=== PATIENT | male | born 1965 | race African-American/Black ===

== ENCOUNTER 2021-12-17 15:57 | Inpatient (IN) | payer OTHER ==
[2021-12-17 19:18] VITALS: BMI 17.7
[2021-12-17] MEDS ORDERED: IBUPROFEN 400 MG TABLET (FP) PO PRN (21:53)
[2021-12-17] MEDS ORDERED: MAGNESIUM HYDROX 2400MG/30ML ORAL SUSPENSION 30 ML CUP PO PRN (21:53)
[2021-12-17] MEDS ORDERED: guaiFENesin 200 MG/10 ML 10 ML UNIT-DOSE CUPS PO PRN (21:53)
[2021-12-17] MEDS ORDERED: P-EPHED 60MG/TRIPROLIDI 2.5MG TABLET PO PRN (21:53)
[2021-12-17] MEDS ORDERED: MENTHOL/PHENOL 1 EACH UD MM PRN (21:53)
[2021-12-17] MEDS ORDERED: hydrOXYzine PAMOATE 25 MG CAPSULE (FP) PO PRN (21:53)
[2021-12-17] MEDS ORDERED: MAGNESIUM CITRATE 300 ML BOTTLE PO PRN (21:53)
[2021-12-17] MEDS ORDERED: ACETAMINOPHEN 325 MG TABLET (FP) PO PRN (21:53)
[2021-12-17] MEDS ORDERED: LOPERAMIDE HCL 2 MG CAPSULE PO PRN (21:53)
[2021-12-17] MEDS ORDERED: MAG HYDROX/AL HYDROX/SIMETH 30 ML UNIT-DOSE CUP PO PRN (21:53)
[2021-12-18] MEDS ORDERED: IBUPROFEN 400 MG TABLET (FP) PO ONE (01:54)
[2021-12-18] MEDS: INSULIN SLIDING SCALE (NOVOLOG) 1 VIAL SQ SCH ×5 (04:12→21:11)
[2021-12-18] MEDS: THIAMINE HCL 100 MG TABLET (FP) PO SCH ×2 (04:12→21:07)
[2021-12-18] MEDS: MELATONIN 5 MG TABLETS PO SCH ×2 (04:13→21:07)
[2021-12-18] MEDS ORDERED: TUBERCULIN PPD 5 TU/0.1ML VIAL ID ONE (06:21)
[2021-12-18] MEDS ORDERED: INSULIN SLIDING SCALE (NOVOLOG) 1 VIAL SQ ONE ×2 (06:34→13:53)
[2021-12-18] MEDS: PRENATAL VITAMINS W/ FOLIC ACID TABLET (FP) PO SCH (09:57)
[2021-12-18] MEDS: NICOTINE 10 MG CARTRIDGE (INHALER) IH PRN (10:08)
[2021-12-18] MEDS ORDERED: ALBUTEROL SO4 HFA INHALER IH PRN (10:27)
[2021-12-18] MEDS ORDERED: BASAGLAR U SQ SCH (10:30)
[2021-12-18] MEDS ORDERED: glipiZIDE-XL 10 MG TAB.ER.24 (FP) PO SCH (13:00)
[2021-12-18] MEDS: ENALAPRIL MALEATE 10 MG TABLET PO SCH (13:32)
[2021-12-18] MEDS: sitaGLIPtin PHOSPHATE 50 MG TABLET PO SCH (13:32)
[2021-12-18] MEDS: PANTOPRAZOLE 40 MG TABLET PO SCH (13:32)
[2021-12-18] MEDS: glipiZIDE-XL 5 MG TAB.ER.24 PO SCH (13:32)
[2021-12-18] MEDS: GABAPENTIN 300 MG CAPSULE PO SCH ×2 (13:33→21:07)
[2021-12-18] MEDS: RIVAROXABAN 20 MG TABLET PO SCH (17:11)
[2021-12-18] MEDS: ATORVASTATIN CA 40 MG TABLET (FP) PO SCH (21:07)
[2021-12-18] MEDS: INSULIN (LEVEMIR) 100 UNITS/ML UNITS SQ SCH (21:11)
[2021-12-19] MEDS: sitaGLIPtin PHOSPHATE 50 MG TABLET PO SCH (06:48)
[2021-12-19] MEDS: glipiZIDE-XL 5 MG TAB.ER.24 PO SCH (06:48)
[2021-12-19] MEDS: GABAPENTIN 300 MG CAPSULE PO SCH ×3 (06:48→21:10)
[2021-12-19] MEDS: INSULIN SLIDING SCALE (NOVOLOG) 1 VIAL SQ SCH ×4 (07:19→21:15)
[2021-12-19] MEDS: PANTOPRAZOLE 40 MG TABLET PO SCH (09:36)
[2021-12-19] MEDS: PRENATAL VITAMINS W/ FOLIC ACID TABLET (FP) PO SCH (09:36)
[2021-12-19] MEDS: ENALAPRIL MALEATE 10 MG TABLET PO SCH (09:37)
[2021-12-19] MEDS: RIVAROXABAN 20 MG TABLET PO SCH (18:22)
[2021-12-19] MEDS: THIAMINE HCL 100 MG TABLET (FP) PO SCH (21:10)
[2021-12-19] MEDS: ATORVASTATIN CA 40 MG TABLET (FP) PO SCH (21:10)
[2021-12-19] MEDS: INSULIN (LEVEMIR) 100 UNITS/ML UNITS SQ SCH (21:14)
[2021-12-19] MEDS: PRAZOSIN HCL 1 MG CAPSULE PO SCH (21:17)
[2021-12-19] MEDS ORDERED: SUVOREXANT 10 MG TABLET PO PRN (22:00)
[2021-12-20] MEDS ORDERED: INSULIN SLIDING SCALE (NOVOLOG) 1 VIAL SQ ONE ×2 (06:34→12:22)
[2021-12-20] MEDS: GABAPENTIN 300 MG CAPSULE PO SCH ×3 (06:36→21:05)
[2021-12-20] MEDS: sitaGLIPtin PHOSPHATE 50 MG TABLET PO SCH (06:39)
[2021-12-20] MEDS: INSULIN SLIDING SCALE (NOVOLOG) 1 VIAL SQ SCH ×4 (07:15→21:09)
[2021-12-20] MEDS: ENALAPRIL MALEATE 10 MG TABLET PO SCH (10:19)
[2021-12-20] MEDS: PANTOPRAZOLE 40 MG TABLET PO SCH (10:19)
[2021-12-20] MEDS: PRENATAL VITAMINS W/ FOLIC ACID TABLET (FP) PO SCH (10:20)
[2021-12-20] MEDS: glipiZIDE-XL 5 MG TAB.ER.24 PO SCH (11:16)
[2021-12-20] MEDS: RIVAROXABAN 20 MG TABLET PO SCH (17:05)
[2021-12-20] MEDS: THIAMINE HCL 100 MG TABLET (FP) PO SCH (21:04)
[2021-12-20] MEDS: ATORVASTATIN CA 40 MG TABLET (FP) PO SCH (21:05)
[2021-12-20] MEDS: PRAZOSIN HCL 1 MG CAPSULE PO SCH (21:06)
[2021-12-20] MEDS: INSULIN (LEVEMIR) 100 UNITS/ML UNITS SQ SCH (21:11)
[2021-12-21] MEDS: GABAPENTIN 300 MG CAPSULE PO SCH ×3 (06:55→21:06)
[2021-12-21] MEDS: sitaGLIPtin PHOSPHATE 50 MG TABLET PO SCH (06:55)
[2021-12-21] MEDS ORDERED: INSULIN SLIDING SCALE (NOVOLOG) 1 VIAL SQ ONE ×2 (06:59→12:04)
[2021-12-21] MEDS: INSULIN SLIDING SCALE (NOVOLOG) 1 VIAL SQ SCH ×4 (07:00→21:43)
[2021-12-21] MEDS: glipiZIDE-XL 5 MG TAB.ER.24 PO SCH (09:02)
[2021-12-21] MEDS: PANTOPRAZOLE 40 MG TABLET PO SCH (10:29)
[2021-12-21] MEDS: ENALAPRIL MALEATE 10 MG TABLET PO SCH (10:30)
[2021-12-21] MEDS: PRENATAL VITAMINS W/ FOLIC ACID TABLET (FP) PO SCH (10:30)
[2021-12-21 11:56] LABS: HIV INTERPRETATION NEGATIVE (NEGATIVE)
[2021-12-21] MEDS: COLLOIDAL OATMEAL 1 BAR EACH TP PRN (12:11)
[2021-12-21] MEDS: RIVAROXABAN 20 MG TABLET PO SCH (17:51)
[2021-12-21] MEDS: THIAMINE HCL 100 MG TABLET (FP) PO SCH (21:06)
[2021-12-21] MEDS: ATORVASTATIN CA 40 MG TABLET (FP) PO SCH (21:06)
[2021-12-21] MEDS: PRAZOSIN HCL 1 MG CAPSULE PO SCH (21:06)
[2021-12-21] MEDS: SUVOREXANT 10 MG TABLET PO PRN (21:07)
[2021-12-21] MEDS: INSULIN (LEVEMIR) 100 UNITS/ML UNITS SQ SCH (21:43)
[2021-12-21] MEDS: VITAMINS A AND D TOPICAL OINTMENT 60 GM TUBE TP SCH (23:31)
[2021-12-22] MEDS: VITAMINS A AND D TOPICAL OINTMENT 60 GM TUBE TP SCH ×4 (00:51→17:28)
[2021-12-22] MEDS: sitaGLIPtin PHOSPHATE 50 MG TABLET PO SCH (06:07)
[2021-12-22] MEDS: GABAPENTIN 300 MG CAPSULE PO SCH ×3 (06:07→21:09)
[2021-12-22] MEDS: glipiZIDE-XL 5 MG TAB.ER.24 PO SCH (06:07)
[2021-12-22] MEDS: INSULIN SLIDING SCALE (NOVOLOG) 1 VIAL SQ SCH ×4 (07:42→21:15)
[2021-12-22] MEDS: PANTOPRAZOLE 40 MG TABLET PO SCH (09:49)
[2021-12-22] MEDS: ENALAPRIL MALEATE 10 MG TABLET PO SCH (09:49)
[2021-12-22] MEDS: PRENATAL VITAMINS W/ FOLIC ACID TABLET (FP) PO SCH (09:49)
[2021-12-22] MEDS: NICOTINE 10 MG CARTRIDGE (INHALER) IH PRN (09:50)
[2021-12-22] MEDS ORDERED: INSULIN SLIDING SCALE (NOVOLOG) 1 VIAL SQ ONE ×3 (11:54→21:14)
[2021-12-22] MEDS: RIVAROXABAN 20 MG TABLET PO SCH (17:26)
[2021-12-22] MEDS: ATORVASTATIN CA 40 MG TABLET (FP) PO SCH (21:08)
[2021-12-22] MEDS: THIAMINE HCL 100 MG TABLET (FP) PO SCH (21:09)
[2021-12-22] MEDS: PRAZOSIN HCL 1 MG CAPSULE PO SCH (21:09)
[2021-12-22] MEDS: SUVOREXANT 10 MG TABLET PO PRN (21:10)
[2021-12-22] MEDS: INSULIN (LEVEMIR) 100 UNITS/ML UNITS SQ SCH (21:14)
[2021-12-23] MEDS: VITAMINS A AND D TOPICAL OINTMENT 60 GM TUBE TP SCH ×4 (01:10→17:40)
[2021-12-23] MEDS: GABAPENTIN 300 MG CAPSULE PO SCH ×3 (06:05→21:02)
[2021-12-23] MEDS: glipiZIDE-XL 5 MG TAB.ER.24 PO SCH (06:05)
[2021-12-23] MEDS: sitaGLIPtin PHOSPHATE 50 MG TABLET PO SCH (06:05)
[2021-12-23] MEDS: INSULIN SLIDING SCALE (NOVOLOG) 1 VIAL SQ SCH ×4 (07:52→21:03)
[2021-12-23] MEDS: PANTOPRAZOLE 40 MG TABLET PO SCH (10:23)
[2021-12-23] MEDS: ENALAPRIL MALEATE 10 MG TABLET PO SCH (10:23)
[2021-12-23] MEDS: PRENATAL VITAMINS W/ FOLIC ACID TABLET (FP) PO SCH (10:23)
[2021-12-23 14:06] LABS: SARS-CoV-2 NAA Not Detected (Not Detected)
[2021-12-23] MEDS ORDERED: INSULIN SLIDING SCALE (NOVOLOG) 1 VIAL SQ ONE ×2 (16:39→21:54)
[2021-12-23] MEDS: RIVAROXABAN 20 MG TABLET PO SCH (17:40)
[2021-12-23] MEDS: PRAZOSIN HCL 1 MG CAPSULE PO SCH (21:01)
[2021-12-23] MEDS: ATORVASTATIN CA 40 MG TABLET (FP) PO SCH (21:02)
[2021-12-23] MEDS: THIAMINE HCL 100 MG TABLET (FP) PO SCH (21:02)
[2021-12-23] MEDS: SUVOREXANT 10 MG TABLET PO PRN (21:03)
[2021-12-23] MEDS: INSULIN (LEVEMIR) 100 UNITS/ML UNITS SQ SCH (21:04)
[2021-12-24] MEDS: VITAMINS A AND D TOPICAL OINTMENT 60 GM TUBE TP SCH ×5 (01:21→23:28)
[2021-12-24] MEDS: sitaGLIPtin PHOSPHATE 50 MG TABLET PO SCH (07:04)
[2021-12-24] MEDS: GABAPENTIN 300 MG CAPSULE PO SCH ×3 (07:04→21:00)
[2021-12-24] MEDS: glipiZIDE-XL 5 MG TAB.ER.24 PO SCH (07:04)
[2021-12-24] MEDS: INSULIN SLIDING SCALE (NOVOLOG) 1 VIAL SQ SCH ×4 (07:49→21:01)
[2021-12-24] MEDS: ENALAPRIL MALEATE 10 MG TABLET PO SCH (10:06)
[2021-12-24] MEDS: PRENATAL VITAMINS W/ FOLIC ACID TABLET (FP) PO SCH (10:06)
[2021-12-24] MEDS: PANTOPRAZOLE 40 MG TABLET PO SCH (10:06)
[2021-12-24] MEDS: RIVAROXABAN 20 MG TABLET PO SCH (18:43)
[2021-12-24] MEDS: ATORVASTATIN CA 40 MG TABLET (FP) PO SCH (21:00)
[2021-12-24] MEDS: PRAZOSIN HCL 1 MG CAPSULE PO SCH (21:00)
[2021-12-24] MEDS: THIAMINE HCL 100 MG TABLET (FP) PO SCH (21:00)
[2021-12-24] MEDS: SUVOREXANT 10 MG TABLET PO PRN (21:01)
[2021-12-24] MEDS: INSULIN (LEVEMIR) 100 UNITS/ML UNITS SQ SCH (21:01)
[2021-12-25] MEDS: GABAPENTIN 300 MG CAPSULE PO SCH ×3 (05:56→21:32)
[2021-12-25] MEDS: VITAMINS A AND D TOPICAL OINTMENT 60 GM TUBE TP SCH ×3 (06:07→17:06)
[2021-12-25] MEDS: sitaGLIPtin PHOSPHATE 50 MG TABLET PO SCH (06:08)
[2021-12-25] MEDS: glipiZIDE-XL 5 MG TAB.ER.24 PO SCH (06:08)
[2021-12-25] MEDS: INSULIN SLIDING SCALE (NOVOLOG) 1 VIAL SQ SCH ×4 (06:18→21:36)
[2021-12-25] MEDS: PANTOPRAZOLE 40 MG TABLET PO SCH (10:51)
[2021-12-25] MEDS: ENALAPRIL MALEATE 10 MG TABLET PO SCH (10:51)
[2021-12-25] MEDS: PRENATAL VITAMINS W/ FOLIC ACID TABLET (FP) PO SCH (10:52)
[2021-12-25] MEDS: NICOTINE 10 MG CARTRIDGE (INHALER) IH PRN (12:00)
[2021-12-25] MEDS: RIVAROXABAN 20 MG TABLET PO SCH (17:06)
[2021-12-25] MEDS: THIAMINE HCL 100 MG TABLET (FP) PO SCH (21:32)
[2021-12-25] MEDS: ATORVASTATIN CA 40 MG TABLET (FP) PO SCH (21:32)
[2021-12-25] MEDS: PRAZOSIN HCL 1 MG CAPSULE PO SCH (21:32)
[2021-12-25] MEDS: INSULIN (LEVEMIR) 100 UNITS/ML UNITS SQ SCH (21:36)
[2021-12-26] MEDS: GABAPENTIN 300 MG CAPSULE PO SCH ×4 (06:19→21:07)
[2021-12-26] MEDS: VITAMINS A AND D TOPICAL OINTMENT 60 GM TUBE TP SCH ×4 (06:20→17:27)
[2021-12-26] MEDS: COLLOIDAL OATMEAL 1 BAR EACH TP PRN (06:21)
[2021-12-26] MEDS: INSULIN SLIDING SCALE (NOVOLOG) 1 VIAL SQ SCH ×4 (07:29→21:08)
[2021-12-26] MEDS: sitaGLIPtin PHOSPHATE 50 MG TABLET PO SCH (07:29)
[2021-12-26] MEDS: glipiZIDE-XL 5 MG TAB.ER.24 PO SCH (08:30)
[2021-12-26] MEDS: PANTOPRAZOLE 40 MG TABLET PO SCH (09:58)
[2021-12-26] MEDS: PRENATAL VITAMINS W/ FOLIC ACID TABLET (FP) PO SCH (09:58)
[2021-12-26] MEDS: ENALAPRIL MALEATE 10 MG TABLET PO SCH (09:58)
[2021-12-26] MEDS: RIVAROXABAN 20 MG TABLET PO SCH (17:02)
[2021-12-26] MEDS: THIAMINE HCL 100 MG TABLET (FP) PO SCH (21:07)
[2021-12-26] MEDS: PRAZOSIN HCL 1 MG CAPSULE PO SCH (21:07)
[2021-12-26] MEDS: ATORVASTATIN CA 40 MG TABLET (FP) PO SCH (21:07)
[2021-12-26] MEDS: SUVOREXANT 10 MG TABLET PO PRN (21:07)
[2021-12-26] MEDS: INSULIN (LEVEMIR) 100 UNITS/ML UNITS SQ SCH (21:08)
[2021-12-27] MEDS: VITAMINS A AND D TOPICAL OINTMENT 60 GM TUBE TP SCH ×4 (01:01→17:22)
[2021-12-27] MEDS: INSULIN SLIDING SCALE (NOVOLOG) 1 VIAL SQ SCH ×4 (07:51→21:23)
[2021-12-27] MEDS: sitaGLIPtin PHOSPHATE 50 MG TABLET PO SCH (07:52)
[2021-12-27] MEDS: glipiZIDE-XL 5 MG TAB.ER.24 PO SCH (07:52)
[2021-12-27] MEDS: GABAPENTIN 300 MG CAPSULE PO SCH ×3 (07:53→21:22)
[2021-12-27] MEDS: PANTOPRAZOLE 40 MG TABLET PO SCH (10:02)
[2021-12-27] MEDS: ENALAPRIL MALEATE 10 MG TABLET PO SCH (10:02)
[2021-12-27] MEDS: PRENATAL VITAMINS W/ FOLIC ACID TABLET (FP) PO SCH (10:03)
[2021-12-27] MEDS: NICOTINE 10 MG CARTRIDGE (INHALER) IH PRN (11:54)
[2021-12-27] MEDS: RIVAROXABAN 20 MG TABLET PO SCH (17:19)
[2021-12-27] MEDS ORDERED: INSULIN SLIDING SCALE (NOVOLOG) 1 VIAL SQ ONE (21:21)
[2021-12-27] MEDS: ATORVASTATIN CA 40 MG TABLET (FP) PO SCH (21:22)
[2021-12-27] MEDS: INSULIN (LEVEMIR) 100 UNITS/ML UNITS SQ SCH (21:23)
[2021-12-27] MEDS: THIAMINE HCL 100 MG TABLET (FP) PO SCH (21:23)
[2021-12-27] MEDS: PRAZOSIN HCL 1 MG CAPSULE PO SCH (22:04)
[2021-12-28] MEDS: VITAMINS A AND D TOPICAL OINTMENT 60 GM TUBE TP SCH ×4 (01:32→20:18)
[2021-12-28] MEDS: glipiZIDE-XL 5 MG TAB.ER.24 PO SCH (06:11)
[2021-12-28] MEDS: sitaGLIPtin PHOSPHATE 50 MG TABLET PO SCH (06:11)
[2021-12-28] MEDS: GABAPENTIN 300 MG CAPSULE PO SCH ×3 (06:13→21:00)
[2021-12-28] MEDS: INSULIN SLIDING SCALE (NOVOLOG) 1 VIAL SQ SCH ×4 (07:54→21:01)
[2021-12-28] MEDS: PANTOPRAZOLE 40 MG TABLET PO SCH (10:02)
[2021-12-28] MEDS: PRENATAL VITAMINS W/ FOLIC ACID TABLET (FP) PO SCH (10:02)
[2021-12-28] MEDS: ENALAPRIL MALEATE 10 MG TABLET PO SCH (11:52)
[2021-12-28] MEDS: RIVAROXABAN 20 MG TABLET PO SCH (17:15)
[2021-12-28] MEDS: ATORVASTATIN CA 40 MG TABLET (FP) PO SCH (21:00)
[2021-12-28] MEDS: PRAZOSIN HCL 1 MG CAPSULE PO SCH (21:00)
[2021-12-28] MEDS: THIAMINE HCL 100 MG TABLET (FP) PO SCH (21:00)
[2021-12-28] MEDS: INSULIN (LEVEMIR) 100 UNITS/ML UNITS SQ SCH (21:00)
[2021-12-28] MEDS: SUVOREXANT 10 MG TABLET PO PRN (21:00)
[2021-12-29] MEDS: VITAMINS A AND D TOPICAL OINTMENT 60 GM TUBE TP SCH ×4 (01:38→17:26)
[2021-12-29] MEDS: sitaGLIPtin PHOSPHATE 50 MG TABLET PO SCH (07:43)
[2021-12-29] MEDS: glipiZIDE-XL 5 MG TAB.ER.24 PO SCH (07:43)
[2021-12-29] MEDS: INSULIN SLIDING SCALE (NOVOLOG) 1 VIAL SQ SCH ×4 (07:43→21:32)
[2021-12-29] MEDS: GABAPENTIN 300 MG CAPSULE PO SCH ×3 (07:43→21:28)
[2021-12-29] MEDS: PRENATAL VITAMINS W/ FOLIC ACID TABLET (FP) PO SCH (09:40)
[2021-12-29] MEDS: PANTOPRAZOLE 40 MG TABLET PO SCH (09:41)
[2021-12-29] MEDS: ENALAPRIL MALEATE 10 MG TABLET PO SCH (09:41)
[2021-12-29] MEDS: RIVAROXABAN 20 MG TABLET PO SCH (17:26)
[2021-12-29] MEDS: SUVOREXANT 10 MG TABLET PO PRN (21:27)
[2021-12-29] MEDS: THIAMINE HCL 100 MG TABLET (FP) PO SCH (21:27)
[2021-12-29] MEDS: ATORVASTATIN CA 40 MG TABLET (FP) PO SCH (21:28)
[2021-12-29] MEDS: PRAZOSIN HCL 1 MG CAPSULE PO SCH (21:28)
[2021-12-29] MEDS: INSULIN (LEVEMIR) 100 UNITS/ML UNITS SQ SCH (21:33)
[2021-12-30] MEDS: VITAMINS A AND D TOPICAL OINTMENT 60 GM TUBE TP SCH ×4 (01:06→17:03)
[2021-12-30] MEDS: glipiZIDE-XL 5 MG TAB.ER.24 PO SCH (06:33)
[2021-12-30] MEDS: sitaGLIPtin PHOSPHATE 50 MG TABLET PO SCH (06:33)
[2021-12-30] MEDS: GABAPENTIN 300 MG CAPSULE PO SCH ×3 (06:33→21:10)
[2021-12-30] MEDS: INSULIN SLIDING SCALE (NOVOLOG) 1 VIAL SQ SCH ×4 (06:35→21:13)
[2021-12-30] MEDS ORDERED: INSULIN SLIDING SCALE (NOVOLOG) 1 VIAL SQ ONE (07:03)
[2021-12-30] MEDS: PRENATAL VITAMINS W/ FOLIC ACID TABLET (FP) PO SCH (09:58)
[2021-12-30] MEDS: ENALAPRIL MALEATE 10 MG TABLET PO SCH (09:58)
[2021-12-30] MEDS: PANTOPRAZOLE 40 MG TABLET PO SCH (09:58)
[2021-12-30] MEDS: RIVAROXABAN 20 MG TABLET PO SCH (17:03)
[2021-12-30] MEDS ORDERED: ATORVASTATIN CA 20 MG TABLET (FP) ONE (18:34)
[2021-12-30] MEDS: ATORVASTATIN CA 40 MG TABLET (FP) PO SCH (21:10)
[2021-12-30] MEDS: THIAMINE HCL 100 MG TABLET (FP) PO SCH (21:10)
[2021-12-30] MEDS: PRAZOSIN HCL 1 MG CAPSULE PO SCH (21:10)
[2021-12-30] MEDS: INSULIN (LEVEMIR) 100 UNITS/ML UNITS SQ SCH (21:13)
[2021-12-31] MEDS: VITAMINS A AND D TOPICAL OINTMENT 60 GM TUBE TP SCH ×4 (01:13→21:52)
[2021-12-31] MEDS: GABAPENTIN 300 MG CAPSULE PO SCH ×3 (06:11→21:55)
[2021-12-31] MEDS: glipiZIDE-XL 5 MG TAB.ER.24 PO SCH (06:11)
[2021-12-31] MEDS: sitaGLIPtin PHOSPHATE 50 MG TABLET PO SCH (06:11)
[2021-12-31] MEDS: INSULIN SLIDING SCALE (NOVOLOG) 1 VIAL SQ SCH ×5 (07:47→21:56)
[2021-12-31] MEDS: PANTOPRAZOLE 40 MG TABLET PO SCH (10:03)
[2021-12-31] MEDS: PRENATAL VITAMINS W/ FOLIC ACID TABLET (FP) PO SCH (10:03)
[2021-12-31] MEDS: ENALAPRIL MALEATE 10 MG TABLET PO SCH (10:03)
[2021-12-31] MEDS: RIVAROXABAN 20 MG TABLET PO SCH (18:54)
[2021-12-31] MEDS ORDERED: ATORVASTATIN CA 20 MG TABLET (FP) ONE (21:53)
[2021-12-31] MEDS: THIAMINE HCL 100 MG TABLET (FP) PO SCH (21:55)
[2021-12-31] MEDS: PRAZOSIN HCL 1 MG CAPSULE PO SCH (21:55)
[2021-12-31] MEDS: ATORVASTATIN CA 40 MG TABLET (FP) PO SCH (21:56)
[2021-12-31] MEDS: INSULIN (LEVEMIR) 100 UNITS/ML UNITS SQ SCH (21:56)
[2022-01-01] MEDS: VITAMINS A AND D TOPICAL OINTMENT 60 GM TUBE TP SCH ×4 (03:43→18:50)
[2022-01-01] MEDS: glipiZIDE-XL 5 MG TAB.ER.24 PO SCH (06:09)
[2022-01-01] MEDS: GABAPENTIN 300 MG CAPSULE PO SCH ×3 (06:09→22:08)
[2022-01-01] MEDS: sitaGLIPtin PHOSPHATE 50 MG TABLET PO SCH (06:09)
[2022-01-01] MEDS: INSULIN SLIDING SCALE (NOVOLOG) 1 VIAL SQ SCH ×4 (08:33→22:08)
[2022-01-01] MEDS: PRENATAL VITAMINS W/ FOLIC ACID TABLET (FP) PO SCH (09:08)
[2022-01-01] MEDS: PANTOPRAZOLE 40 MG TABLET PO SCH (09:09)
[2022-01-01] MEDS: ENALAPRIL MALEATE 10 MG TABLET PO SCH (09:09)
[2022-01-01] MEDS: RIVAROXABAN 20 MG TABLET PO SCH (17:49)
[2022-01-01] MEDS: INSULIN (LEVEMIR) 100 UNITS/ML UNITS SQ SCH (22:07)
[2022-01-01] MEDS: ATORVASTATIN CA 40 MG TABLET (FP) PO SCH (22:08)
[2022-01-01] MEDS: PRAZOSIN HCL 1 MG CAPSULE PO SCH (22:08)
[2022-01-01] MEDS: THIAMINE HCL 100 MG TABLET (FP) PO SCH (22:08)
[2022-01-02] MEDS: VITAMINS A AND D TOPICAL OINTMENT 60 GM TUBE TP SCH ×5 (01:57→23:38)
[2022-01-02] MEDS: GABAPENTIN 300 MG CAPSULE PO SCH ×3 (06:19→21:22)
[2022-01-02] MEDS: sitaGLIPtin PHOSPHATE 50 MG TABLET PO SCH (06:20)
[2022-01-02] MEDS: glipiZIDE-XL 5 MG TAB.ER.24 PO SCH (06:21)
[2022-01-02] MEDS ORDERED: INSULIN SLIDING SCALE (NOVOLOG) 1 VIAL SQ ONE ×2 (06:22→06:59)
[2022-01-02] MEDS: INSULIN SLIDING SCALE (NOVOLOG) 1 VIAL SQ SCH ×4 (06:24→21:28)
[2022-01-02] MEDS: ENALAPRIL MALEATE 10 MG TABLET PO SCH (10:14)
[2022-01-02] MEDS: PRENATAL VITAMINS W/ FOLIC ACID TABLET (FP) PO SCH (10:14)
[2022-01-02] MEDS: PANTOPRAZOLE 40 MG TABLET PO SCH (10:14)
[2022-01-02] MEDS: RIVAROXABAN 20 MG TABLET PO SCH (17:01)
[2022-01-02] MEDS: THIAMINE HCL 100 MG TABLET (FP) PO SCH (21:22)
[2022-01-02] MEDS: ATORVASTATIN CA 40 MG TABLET (FP) PO SCH (21:22)
[2022-01-02] MEDS: PRAZOSIN HCL 1 MG CAPSULE PO SCH (21:22)
[2022-01-02] MEDS: SUVOREXANT 10 MG TABLET PO PRN (21:23)
[2022-01-02] MEDS: INSULIN (LEVEMIR) 100 UNITS/ML UNITS SQ SCH (21:27)
[2022-01-03] MEDS: GABAPENTIN 300 MG CAPSULE PO SCH ×3 (05:54→21:13)
[2022-01-03] MEDS: VITAMINS A AND D TOPICAL OINTMENT 60 GM TUBE TP SCH ×3 (05:54→18:52)
[2022-01-03] MEDS: sitaGLIPtin PHOSPHATE 50 MG TABLET PO SCH (06:03)
[2022-01-03] MEDS: INSULIN SLIDING SCALE (NOVOLOG) 1 VIAL SQ SCH ×4 (06:03→21:17)
[2022-01-03] MEDS: glipiZIDE-XL 5 MG TAB.ER.24 PO SCH (06:03)
[2022-01-03] MEDS ORDERED: INSULIN SLIDING SCALE (NOVOLOG) 1 VIAL SQ ONE (06:26)
[2022-01-03] MEDS: ENALAPRIL MALEATE 10 MG TABLET PO SCH (10:13)
[2022-01-03] MEDS: PANTOPRAZOLE 40 MG TABLET PO SCH (10:13)
[2022-01-03] MEDS: PRENATAL VITAMINS W/ FOLIC ACID TABLET (FP) PO SCH (10:13)
[2022-01-03] MEDS: MECLIZINE HCL 12.5 MG TABLET PO PRN (10:50)
[2022-01-03] MEDS: RIVAROXABAN 20 MG TABLET PO SCH (18:52)
[2022-01-03] MEDS: THIAMINE HCL 100 MG TABLET (FP) PO SCH (21:13)
[2022-01-03] MEDS: ATORVASTATIN CA 40 MG TABLET (FP) PO SCH (21:13)
[2022-01-03] MEDS: PRAZOSIN HCL 1 MG CAPSULE PO SCH (21:13)
[2022-01-03] MEDS: SUVOREXANT 10 MG TABLET PO PRN (21:14)
[2022-01-03] MEDS: INSULIN (LEVEMIR) 100 UNITS/ML UNITS SQ SCH (21:17)
[2022-01-04] MEDS: VITAMINS A AND D TOPICAL OINTMENT 60 GM TUBE TP SCH ×4 (01:33→17:04)
[2022-01-04] MEDS: GABAPENTIN 300 MG CAPSULE PO SCH ×3 (06:00→21:36)
[2022-01-04] MEDS: sitaGLIPtin PHOSPHATE 50 MG TABLET PO SCH (06:00)
[2022-01-04] MEDS: glipiZIDE-XL 5 MG TAB.ER.24 PO SCH (06:00)
[2022-01-04] MEDS: INSULIN SLIDING SCALE (NOVOLOG) 1 VIAL SQ SCH ×4 (06:16→21:41)
[2022-01-04] MEDS ORDERED: INSULIN SLIDING SCALE (NOVOLOG) 1 VIAL SQ ONE (06:59)
[2022-01-04] MEDS: PRENATAL VITAMINS W/ FOLIC ACID TABLET (FP) PO SCH (10:48)
[2022-01-04] MEDS: ENALAPRIL MALEATE 10 MG TABLET PO SCH (10:48)
[2022-01-04] MEDS: PANTOPRAZOLE 40 MG TABLET PO SCH (10:48)
[2022-01-04] MEDS: MECLIZINE HCL 12.5 MG TABLET PO PRN (11:59)
[2022-01-04] MEDS: RIVAROXABAN 20 MG TABLET PO SCH (17:04)
[2022-01-04] MEDS: ATORVASTATIN CA 40 MG TABLET (FP) PO SCH (21:36)
[2022-01-04] MEDS: SUVOREXANT 15 MG TABLET PO PRN (21:36)
[2022-01-04] MEDS: THIAMINE HCL 100 MG TABLET (FP) PO SCH (21:36)
[2022-01-04] MEDS: PRAZOSIN HCL 1 MG CAPSULE PO SCH (21:36)
[2022-01-04] MEDS: INSULIN (LEVEMIR) 100 UNITS/ML UNITS SQ SCH (21:41)
[2022-01-05] MEDS: VITAMINS A AND D TOPICAL OINTMENT 60 GM TUBE TP SCH ×4 (01:17→17:34)
[2022-01-05] MEDS: sitaGLIPtin PHOSPHATE 50 MG TABLET PO SCH (07:03)
[2022-01-05] MEDS: GABAPENTIN 300 MG CAPSULE PO SCH ×3 (07:03→21:47)
[2022-01-05] MEDS: glipiZIDE-XL 5 MG TAB.ER.24 PO SCH (07:03)
[2022-01-05] MEDS: INSULIN SLIDING SCALE (NOVOLOG) 1 VIAL SQ SCH ×4 (07:57→21:52)
[2022-01-05] MEDS: PANTOPRAZOLE 40 MG TABLET PO SCH (09:38)
[2022-01-05] MEDS: ENALAPRIL MALEATE 10 MG TABLET PO SCH (09:38)
[2022-01-05] MEDS: PRENATAL VITAMINS W/ FOLIC ACID TABLET (FP) PO SCH (09:38)
[2022-01-05] MEDS: MECLIZINE HCL 12.5 MG TABLET PO PRN (09:40)
[2022-01-05] MEDS ORDERED: INSULIN SLIDING SCALE (NOVOLOG) 1 VIAL SQ ONE ×2 (12:04→22:06)
[2022-01-05] MEDS: RIVAROXABAN 20 MG TABLET PO SCH (17:34)
[2022-01-05] MEDS: PRAZOSIN HCL 1 MG CAPSULE PO SCH (21:48)
[2022-01-05] MEDS: THIAMINE HCL 100 MG TABLET (FP) PO SCH (21:48)
[2022-01-05] MEDS: ATORVASTATIN CA 40 MG TABLET (FP) PO SCH (21:48)
[2022-01-05] MEDS: SUVOREXANT 15 MG TABLET PO PRN (21:49)
[2022-01-05] MEDS: INSULIN (LEVEMIR) 100 UNITS/ML UNITS SQ SCH (21:53)
[2022-01-06] MEDS: VITAMINS A AND D TOPICAL OINTMENT 60 GM TUBE TP SCH ×4 (01:08→17:30)
[2022-01-06] MEDS: GABAPENTIN 300 MG CAPSULE PO SCH ×3 (06:50→21:00)
[2022-01-06] MEDS: glipiZIDE-XL 5 MG TAB.ER.24 PO SCH (06:50)
[2022-01-06] MEDS: sitaGLIPtin PHOSPHATE 50 MG TABLET PO SCH (06:50)
[2022-01-06] MEDS: MECLIZINE HCL 12.5 MG TABLET PO PRN (06:53)
[2022-01-06] MEDS: INSULIN SLIDING SCALE (NOVOLOG) 1 VIAL SQ SCH ×4 (07:50→21:02)
[2022-01-06] MEDS: ENALAPRIL MALEATE 10 MG TABLET PO SCH (09:35)
[2022-01-06] MEDS: PRENATAL VITAMINS W/ FOLIC ACID TABLET (FP) PO SCH (09:35)
[2022-01-06] MEDS: PANTOPRAZOLE 40 MG TABLET PO SCH (09:35)
[2022-01-06] MEDS ORDERED: INSULIN SLIDING SCALE (NOVOLOG) 1 VIAL SQ ONE (12:05)
[2022-01-06] MEDS: RIVAROXABAN 20 MG TABLET PO SCH (17:30)
[2022-01-06] MEDS: ATORVASTATIN CA 40 MG TABLET (FP) PO SCH (21:00)
[2022-01-06] MEDS: PRAZOSIN HCL 1 MG CAPSULE PO SCH (21:00)
[2022-01-06] MEDS: THIAMINE HCL 100 MG TABLET (FP) PO SCH (21:01)
[2022-01-06] MEDS: SUVOREXANT 15 MG TABLET PO PRN (21:01)
[2022-01-06] MEDS: INSULIN (LEVEMIR) 100 UNITS/ML UNITS SQ SCH (21:02)
[2022-01-07] MEDS: VITAMINS A AND D TOPICAL OINTMENT 60 GM TUBE TP SCH ×4 (00:56→17:05)
[2022-01-07] MEDS: sitaGLIPtin PHOSPHATE 50 MG TABLET PO SCH (06:12)
[2022-01-07] MEDS: glipiZIDE-XL 5 MG TAB.ER.24 PO SCH (06:12)
[2022-01-07] MEDS: GABAPENTIN 300 MG CAPSULE PO SCH ×3 (06:12→21:52)
[2022-01-07] MEDS: INSULIN SLIDING SCALE (NOVOLOG) 1 VIAL SQ SCH ×4 (06:21→21:56)
[2022-01-07] MEDS ORDERED: INSULIN SLIDING SCALE (NOVOLOG) 1 VIAL SQ ONE ×3 (06:36→21:54)
[2022-01-07] MEDS: PRENATAL VITAMINS W/ FOLIC ACID TABLET (FP) PO SCH (09:58)
[2022-01-07] MEDS: PANTOPRAZOLE 40 MG TABLET PO SCH (09:58)
[2022-01-07] MEDS: ENALAPRIL MALEATE 10 MG TABLET PO SCH (09:58)
[2022-01-07] MEDS: RIVAROXABAN 20 MG TABLET PO SCH (17:05)
[2022-01-07] MEDS: ATORVASTATIN CA 40 MG TABLET (FP) PO SCH (21:52)
[2022-01-07] MEDS: PRAZOSIN HCL 1 MG CAPSULE PO SCH (21:53)
[2022-01-07] MEDS: THIAMINE HCL 100 MG TABLET (FP) PO SCH (21:53)
[2022-01-07] MEDS: SUVOREXANT 15 MG TABLET PO PRN (21:53)
[2022-01-07] MEDS: INSULIN (LEVEMIR) 100 UNITS/ML UNITS SQ SCH (21:57)
[2022-01-08] MEDS: VITAMINS A AND D TOPICAL OINTMENT 60 GM TUBE TP SCH ×4 (00:44→19:30)
[2022-01-08] MEDS ORDERED: INSULIN SLIDING SCALE (NOVOLOG) 1 VIAL SQ ONE ×3 (03:06→16:36)
[2022-01-08] MEDS: GABAPENTIN 300 MG CAPSULE PO SCH ×3 (06:11→21:26)
[2022-01-08] MEDS: sitaGLIPtin PHOSPHATE 50 MG TABLET PO SCH (06:11)
[2022-01-08] MEDS: glipiZIDE-XL 5 MG TAB.ER.24 PO SCH (06:26)
[2022-01-08] MEDS: INSULIN SLIDING SCALE (NOVOLOG) 1 VIAL SQ SCH ×4 (06:26→21:29)
[2022-01-08] MEDS: PANTOPRAZOLE 40 MG TABLET PO SCH (10:25)
[2022-01-08] MEDS: ENALAPRIL MALEATE 10 MG TABLET PO SCH (10:26)
[2022-01-08] MEDS: PRENATAL VITAMINS W/ FOLIC ACID TABLET (FP) PO SCH (10:26)
[2022-01-08] MEDS: NICOTINE 10 MG CARTRIDGE (INHALER) IH PRN (10:27)
[2022-01-08] MEDS: RIVAROXABAN 20 MG TABLET PO SCH (17:12)
[2022-01-08] MEDS: THIAMINE HCL 100 MG TABLET (FP) PO SCH (21:25)
[2022-01-08] MEDS: ATORVASTATIN CA 40 MG TABLET (FP) PO SCH (21:25)
[2022-01-08] MEDS: SUVOREXANT 15 MG TABLET PO PRN (21:26)
[2022-01-08] MEDS: PRAZOSIN HCL 1 MG CAPSULE PO SCH (21:26)
[2022-01-08] MEDS: INSULIN (LEVEMIR) 100 UNITS/ML UNITS SQ SCH (21:29)
[2022-01-09] MEDS: glipiZIDE-XL 5 MG TAB.ER.24 PO SCH ×2 (00:25→06:31)
[2022-01-09] MEDS: VITAMINS A AND D TOPICAL OINTMENT 60 GM TUBE TP SCH ×4 (00:41→19:15)
[2022-01-09] MEDS: GABAPENTIN 300 MG CAPSULE PO SCH ×3 (06:31→21:02)
[2022-01-09] MEDS: sitaGLIPtin PHOSPHATE 50 MG TABLET PO SCH (06:31)
[2022-01-09] MEDS ORDERED: INSULIN SLIDING SCALE (NOVOLOG) 1 VIAL SQ ONE (06:42)
[2022-01-09] MEDS: INSULIN SLIDING SCALE (NOVOLOG) 1 VIAL SQ SCH ×4 (06:44→21:04)
[2022-01-09] MEDS: PRENATAL VITAMINS W/ FOLIC ACID TABLET (FP) PO SCH (10:04)
[2022-01-09] MEDS: PANTOPRAZOLE 40 MG TABLET PO SCH (10:06)
[2022-01-09] MEDS: ENALAPRIL MALEATE 10 MG TABLET PO SCH (10:07)
[2022-01-09] MEDS: RIVAROXABAN 20 MG TABLET PO SCH (18:35)
[2022-01-09] MEDS: ATORVASTATIN CA 40 MG TABLET (FP) PO SCH (21:01)
[2022-01-09] MEDS: PRAZOSIN HCL 1 MG CAPSULE PO SCH (21:01)
[2022-01-09] MEDS: SUVOREXANT 15 MG TABLET PO PRN (21:01)
[2022-01-09] MEDS: THIAMINE HCL 100 MG TABLET (FP) PO SCH (21:02)
[2022-01-09] MEDS: INSULIN (LEVEMIR) 100 UNITS/ML UNITS SQ SCH (21:04)
[2022-01-10 00:07] LABS: SARS-CoV-2 NAA Not Detected (Not Detected)
[2022-01-10] MEDS: VITAMINS A AND D TOPICAL OINTMENT 60 GM TUBE TP SCH ×4 (00:46→17:24)
[2022-01-10] MEDS: glipiZIDE-XL 5 MG TAB.ER.24 PO SCH (06:43)
[2022-01-10] MEDS: GABAPENTIN 300 MG CAPSULE PO SCH (06:43)
[2022-01-10] MEDS: sitaGLIPtin PHOSPHATE 50 MG TABLET PO SCH (06:43)
[2022-01-10] MEDS: INSULIN SLIDING SCALE (NOVOLOG) 1 VIAL SQ SCH ×4 (07:42→23:24)
[2022-01-10] MEDS: PRENATAL VITAMINS W/ FOLIC ACID TABLET (FP) PO SCH (09:42)
[2022-01-10] MEDS: ENALAPRIL MALEATE 10 MG TABLET PO SCH (09:42)
[2022-01-10] MEDS: PANTOPRAZOLE 40 MG TABLET PO SCH (09:43)
[2022-01-10] MEDS ORDERED: INSULIN SLIDING SCALE (NOVOLOG) 1 VIAL SQ ONE (11:52)
[2022-01-10] MEDS: GABAPENTIN 400 MG CAPSULE PO SCH ×2 (14:11→21:16)
[2022-01-10] MEDS: RIVAROXABAN 20 MG TABLET PO SCH (17:21)
[2022-01-10] MEDS: SUVOREXANT 15 MG TABLET PO PRN (21:15)
[2022-01-10] MEDS: PRAZOSIN HCL 1 MG CAPSULE PO SCH (21:16)
[2022-01-10] MEDS: THIAMINE HCL 100 MG TABLET (FP) PO SCH (21:16)
[2022-01-10] MEDS: ATORVASTATIN CA 40 MG TABLET (FP) PO SCH (21:16)
[2022-01-10] MEDS: INSULIN (LEVEMIR) 100 UNITS/ML UNITS SQ SCH (21:20)
[2022-01-11] MEDS: VITAMINS A AND D TOPICAL OINTMENT 60 GM TUBE TP SCH ×4 (01:16→17:20)
[2022-01-11] MEDS: GABAPENTIN 400 MG CAPSULE PO SCH ×3 (06:35→21:55)
[2022-01-11] MEDS: glipiZIDE-XL 5 MG TAB.ER.24 PO SCH (06:35)
[2022-01-11] MEDS: sitaGLIPtin PHOSPHATE 50 MG TABLET PO SCH (06:35)
[2022-01-11] MEDS: MECLIZINE HCL 12.5 MG TABLET PO PRN (06:35)
[2022-01-11] MEDS: INSULIN SLIDING SCALE (NOVOLOG) 1 VIAL SQ SCH ×4 (07:37→21:58)
[2022-01-11] MEDS: PANTOPRAZOLE 40 MG TABLET PO SCH (09:39)
[2022-01-11] MEDS: PRENATAL VITAMINS W/ FOLIC ACID TABLET (FP) PO SCH (09:39)
[2022-01-11] MEDS: ENALAPRIL MALEATE 10 MG TABLET PO SCH (10:52)
[2022-01-11] MEDS: RIVAROXABAN 20 MG TABLET PO SCH (17:20)
[2022-01-11] MEDS: PRAZOSIN HCL 1 MG CAPSULE PO SCH (21:54)
[2022-01-11] MEDS: ATORVASTATIN CA 40 MG TABLET (FP) PO SCH (21:55)
[2022-01-11] MEDS: THIAMINE HCL 100 MG TABLET (FP) PO SCH (21:55)
[2022-01-11] MEDS: SUVOREXANT 15 MG TABLET PO PRN (21:58)
[2022-01-11] MEDS: INSULIN (LEVEMIR) 100 UNITS/ML UNITS SQ SCH (21:58)
[2022-01-11] MEDS ORDERED: INSULIN SLIDING SCALE (NOVOLOG) 1 VIAL SQ ONE (22:07)
[2022-01-12] MEDS: VITAMINS A AND D TOPICAL OINTMENT 60 GM TUBE TP SCH ×4 (01:10→17:09)
[2022-01-12] MEDS: GABAPENTIN 400 MG CAPSULE PO SCH ×3 (06:48→21:02)
[2022-01-12] MEDS: sitaGLIPtin PHOSPHATE 50 MG TABLET PO SCH (06:48)
[2022-01-12] MEDS: INSULIN SLIDING SCALE (NOVOLOG) 1 VIAL SQ SCH ×4 (06:50→21:04)
[2022-01-12] MEDS: PRENATAL VITAMINS W/ FOLIC ACID TABLET (FP) PO SCH (10:24)
[2022-01-12] MEDS: PANTOPRAZOLE 40 MG TABLET PO SCH (10:24)
[2022-01-12] MEDS: ENALAPRIL MALEATE 10 MG TABLET PO SCH (10:24)
[2022-01-12] MEDS: COLLOIDAL OATMEAL 1 BAR EACH TP PRN (10:26)
[2022-01-12] MEDS: glipiZIDE-XL 5 MG TAB.ER.24 PO SCH (11:45)
[2022-01-12] MEDS: RIVAROXABAN 20 MG TABLET PO SCH (17:09)
[2022-01-12] MEDS: ATORVASTATIN CA 40 MG TABLET (FP) PO SCH (21:02)
[2022-01-12] MEDS: SUVOREXANT 15 MG TABLET PO PRN (21:03)
[2022-01-12] MEDS: PRAZOSIN HCL 1 MG CAPSULE PO SCH (21:03)
[2022-01-12] MEDS: INSULIN (LEVEMIR) 100 UNITS/ML UNITS SQ SCH (21:04)
[2022-01-12] MEDS: THIAMINE HCL 100 MG TABLET (FP) PO SCH (21:37)
[2022-01-13] MEDS: VITAMINS A AND D TOPICAL OINTMENT 60 GM TUBE TP SCH ×4 (00:56→17:00)
[2022-01-13] MEDS: GABAPENTIN 400 MG CAPSULE PO SCH ×3 (06:41→21:04)
[2022-01-13] MEDS: glipiZIDE-XL 5 MG TAB.ER.24 PO SCH (06:41)
[2022-01-13] MEDS: sitaGLIPtin PHOSPHATE 50 MG TABLET PO SCH (06:41)
[2022-01-13] MEDS: INSULIN SLIDING SCALE (NOVOLOG) 1 VIAL SQ SCH ×4 (07:45→21:05)
[2022-01-13 08:25] VITALS: TEMP 99
[2022-01-13] MEDS: PRENATAL VITAMINS W/ FOLIC ACID TABLET (FP) PO SCH (09:51)
[2022-01-13] MEDS: PANTOPRAZOLE 40 MG TABLET PO SCH (09:51)
[2022-01-13] MEDS: ENALAPRIL MALEATE 10 MG TABLET PO SCH (09:52)
[2022-01-13] MEDS ORDERED: INSULIN SLIDING SCALE (NOVOLOG) 1 VIAL SQ ONE (12:04)
[2022-01-13] MEDS: RIVAROXABAN 20 MG TABLET PO SCH (17:00)
[2022-01-13 20:44] VITALS: BP 146/79; PULSE 97
[2022-01-13] MEDS: THIAMINE HCL 100 MG TABLET (FP) PO SCH (21:03)
[2022-01-13] MEDS: PRAZOSIN HCL 1 MG CAPSULE PO SCH (21:04)
[2022-01-13] MEDS: ATORVASTATIN CA 40 MG TABLET (FP) PO SCH (21:04)
[2022-01-13] MEDS: INSULIN (LEVEMIR) 100 UNITS/ML UNITS SQ SCH (21:05)
[2022-01-13] MEDS ORDERED: SUVOREXANT 15 MG TABLET PO PRN (22:00)
[2022-01-14] MEDS: VITAMINS A AND D TOPICAL OINTMENT 60 GM TUBE TP SCH ×2 (01:04→06:56)
[2022-01-14] MEDS: sitaGLIPtin PHOSPHATE 50 MG TABLET PO SCH (06:56)
[2022-01-14] MEDS: GABAPENTIN 400 MG CAPSULE PO SCH (06:56)
[2022-01-14] MEDS: glipiZIDE-XL 5 MG TAB.ER.24 PO SCH (06:56)
[2022-01-14] MEDS: INSULIN SLIDING SCALE (NOVOLOG) 1 VIAL SQ SCH (07:45)
== END 2022-01-14 09:32 | disposition left against medical advice (07) | DRG 772 ==
LOC: YASAS 15:57 → Y3W 12-18 01:11
PROVIDERS: ADMIT Allergy & Immunology; ATTEND Allergy & Immunology
PROC: HZ42ZZZ Group Counseling for Substance Abuse Treatment, Cognitive-Behavioral (ICD-10-PCS; principal; 2021-12-18)
DX: F14.20 Cocaine dependence, uncomplicated (principal); F17.210 Nicotine dependence, cigarettes, uncomplicated; F19.280 Other psychoactive substance dependence with psychoactive substance-induced anxiety disorder; F19.282 Other psychoactive substance dependence with psychoactive substance-induced sleep disorder; F19.24 Other psychoactive substance dependence with psychoactive substance-induced mood disorder; F41.8 Other specified anxiety disorders; F32.A Depression, unspecified; F43.10 Post-traumatic stress disorder, unspecified; E11.9 Type 2 diabetes mellitus without complications; Z79.84 Long term (current) use of oral hypoglycemic drugs; M14.672 Charcot's joint, left ankle and foot; H55.00 Unspecified nystagmus; R42 Dizziness and giddiness; R26.89 Other abnormalities of gait and mobility; F91.8 Other conduct disorders; Z91.19 Patient's noncompliance with other medical treatment and regimen
CPT/HCPCS: 36415; 82962; 87389; C9803; U0003; U0005

== ENCOUNTER 2022-01-01 09:54 | Emergency (ER) | payer OTHER ==
[2022-01-01 10:14] VITALS: TEMP 97.4; BMI 33.2
[2022-01-01 11:26] LABS: HEMATOCRIT 31.9 % (35.4-49); HEMOGLOBIN 10.7 GM/dL (11.7-16.9); MCH 27.5 pg (25.7-33.7); MCHC 33.6 g/dl (32.0-35.9); MEAN CELL VOLUME 81.7 fl (80-96); MEAN PLT VOLUME 7.7 fl (7.5-11.1); PLATELET COUNT 387 10^3/uL (134-434); RBC 3.91 M/mm3 (4.00-5.60); RDW 16.1 % (11.9-15.9)
[2022-01-01 11:32] LABS: ALBUMIN 2.7 g/dl (3.4-5.0); BLOOD UREA NITROGEN 21.2 mg/dL (7-18); CALCIUM 8.8 mg/dL (8.5-10.1); MAGNESIUM 1.8 mg/dL (1.8-2.4)
[2022-01-01 11:35] LABS: CREATININE 1.2 mg/dL (0.55-1.3)
[2022-01-01 11:37] LABS: BILIRUBIN,TOTAL 0.3 mg/dL (0.2-1); TOT PROT 6.4 g/dl (6.4-8.2)
[2022-01-01 12:12] LABS: ANISOCYTOSIS 0; HELMET CELLS 0; HOWELL-JOLLY BODIES 0; MACROCYTOSIS 0; OVALOCYTE 0; ROULEAU 0; SICKELED CELLS 0; TARGET CELLS 0; TEAR DROP CELLS 0; TOXIC GRANULATION 0
[2022-01-01 15:59] VITALS: BP 159/86; PULSE 64
== END 2022-01-01 17:30 | disposition short-term general hospital (02) ==
LOC: JER 09:54
DX: R55 Syncope and collapse (principal)
CPT/HCPCS: 36415; 71045-TC-FY; 80053; 83735; 84484; 85025; 93005; 93010; 99285-25